=== PATIENT | male | born 1995 | race Caucasian/White ===

== ENCOUNTER 2021-05-14 17:49 | Emergency (ER) | payer OTHER, SELFPAY ==
[2021-05-14 18:42] VITALS: BP 123/55; PULSE 69; RESP 18; O2SAT 98; BMI 20.5
--- NOTE | 2021-05-14 18:47 | ED.URI ---
HPI - URI/Sore Throat General Chief Complaint: Upper Respiratory Symptoms Stated Complaint: fatigue,vomiting,sore throat Time Seen by Provider: 05/14/21 18:39 History of Present Illness HPI Narrative: Patient 26-year-old male presents today with having some coughing generalized malaise achiness. Patient had nausea vomiting on Tuesday. That has improved over time. Have some sore throat associated with the symptoms. Patient did not receive his coronavirus vaccine. Works in a warehouse. Denies any recent travel. Patient from home. Now tolerating fluids. Related Data Allergies Allergy/AdvReac Type Severity Reaction Status Date / Time No Known Allergies Allergy Verified 05/14/21 18:39 Review of Systems Review of Systems: Positive coughing positive generalized malaise weakness Positive nausea vomiting on Tuesday. Symptom has since improved. All systems reviewed otherwise negative Yes all other systems are reviewed and are negative [facility] Past Medical History Attestation statement: The following information was validated with the patient. Social History Social History Advance Directives: No Advance Directives Information Provided: No Physical Exam Vital Signs: Vital Signs: Last Vital Signs Pulse 69 05/14/21 18:42 Resp 18 05/14/21 18:42 BP 123/55 L 05/14/21 18:42 Pulse Ox 98 05/14/21 18:42 Body Mass Index 20.5 Appearance: Alert. Oriented X3. No acute distress. Eyes: Pupils equal, round and reactive to light. ENT: Pharynx normal. Neck: Normal inspection. Neck supple. No lymph nodes noted. No crepitus CVS: Normal heart rate and rhythm. Pulses normal. Normal S1 and S2 Respiratory: No respiratory distress. Breath sounds normal. No Wheezing. No rales Abdomen: Soft and nontender. No rigidity. No distention. good BS x4 Skin: Skin warm and dry. Normal skin color. Normal skin turgor. Extremities: No lower extremity edema. Neurovascular intact to all extremities. No Lacerations. No Rash Neuro: Oriented X 3. No motor deficit. No sensory deficit. Moving all extermities. No slurred speech MDM - URI/Sore Throat MDM Narrative Medical decision making narrative: Will test for COVID and rapid strep. Both of which were negative. Patient well-appearing O2 sat is normal. Will discharge patient home. In stable condition Lab Data Attestation: I reviewed the patient's lab results. Labs: Lab Results 05/14/21 05/14/21 Range/Units 18:47 18:47 COVID-19 (JANETT) Negative (Negative) COVID-19 Clin Com See Note S. pyogenes GrpA STEFANO Negative (Negative) Discharge Plan Discharge Clinical Impression: Upper respiratory infection Patient Disposition: Home, Self-Care Instructions: Upper Respiratory Infection (ED) Referrals: Physician,None [Physician] - 2 days Stand Alone Forms: Work/School Release
[2021-05-14 19:04] LABS: IDNOW Serial# 08D9AD1C; Strep A Nucleic Acid Negative (Negative)
[2021-05-14 19:08] LABS: COVID-19 Test Negative (Negative)
== END 2021-05-14 19:27 | disposition home or self-care (01) ==
LOC: HO.ED 19:01
PROVIDERS: Emergency Provider Emergency Medicine Emergency Medical Services; PCP Internal Medicine
DX: J06.9 Acute upper respiratory infection, unspecified (principal); Z20.822 Contact with and (suspected) exposure to COVID-19
CPT/HCPCS: 36415; 87635; 87651; 99282; 99283

== ENCOUNTER 2021-05-25 15:55 | Emergency (ER) | payer OTHER, SELFPAY ==
[2021-05-25 16:38] VITALS: BP 122/74; PULSE 95; RESP 18; TEMP 38.7; O2SAT 98; BMI 28.3
[2021-05-25] MEDS: Acetaminophen 325 MG TABLET 650 MG PO (16:47)
[2021-05-25 17:02] LABS: Strep A Nucleic Acid Negative (Negative)
[2021-05-25 17:32] LABS: Influenza A PCR NEGATIVE (Negative); Influenza B PCR NEGATIVE (Negative); Resp Syncy Virus RNA Qual PCR NEGATIVE (Negative); SARS COV2 PCR INHOUSE POSITIVE (Negative)
--- NOTE | 2021-05-25 18:35 | ED.URI ---
HPI - URI/Sore Throat General Chief Complaint: Upper Respiratory Symptoms Stated Complaint: sore throat headache Time Seen by Provider: 05/25/21 18:35 Source: patient Mode of arrival: ambulatory Limitations: no limitations History of Present Illness MD elicited complaint: fever, sore throat and other (body aches) Onset (ago): day(s) (1) Consistency: constant Severity: moderate Able to tolerate fluids by mouth: Yes Exacerbating factors: swallowing Relieving factors: nothing Context: other (patient is not vaccinated) Associated symptoms: fever, chills, myalgias, sore throat and cough Treatments prior to arrival: none Related Data Allergies Allergy/AdvReac Type Severity Reaction Status Date / Time No Known Allergies Allergy Verified 05/14/21 18:39 Review of Systems Review of Systems: Constitutional : positive Fever, positive Chills, positive fatigue, positive Malaise ENT/Mouth : positive sore throat, positive runny nose Eyes: No Discharge Cardiovascular : No Chest Pain, No SOB Respiratory : No Cough, No Sputum Gastrointestinal : No Nausea, No Vomiting, No Diarrhea Genitourinary : No Dysuria, No Urinary Frequency Musculoskeletal : positive Myalgia Skin : No rash Neuro : No Headache PMFSH Past Medical History Attestation statement: The following information was validated with the patient. Medical History (Updated 05/25/21 @ 18:46 by Marilee Rodriguez DO) No known health problems Social History Social History (Updated 05/25/21 @ 18:46 by Marilee Rodriguez DO) Patient Tobacco Use Status: Never used Tobacco Substance Use Type: Marijuana Advance Directives: No Advance Directives Information Provided: No Physical Exam Vital Signs: Vital Signs: Last Vital Signs Temp 101.6 F H 05/25/21 16:38 Pulse 95 05/25/21 16:38 Resp 18 05/25/21 16:38 BP 122/74 05/25/21 16:38 Pulse Ox 98 05/25/21 16:38 Body Mass Index 28.3 Appearance: Alert. Oriented X3. No acute distress. Eyes: Pupils equal, round and reactive to light. ENT: Pharynx mild erythema no exudates or swelling Neck: Normal inspection. Neck supple. CVS: Normal heart rate and rhythm. Pulses normal. Respiratory: No respiratory distress. Breath sounds normal. Abdomen: Soft and nontender. Skin: Skin warm and dry. Normal skin color. . Extremities: No lower extremity edema. Neuro: Oriented X 3. No motor deficit. No sensory deficit. MDM - URI/Sore Throat MDM Narrative Medical decision making narrative: 26 yo male no PMH here with URI symptoms, no hypoxia clear lungs he is not vaccinated - tested positive for COVID given precautions to return Lab Data Labs: Lab Results 05/25/21 05/25/21 Range/Units 16:46 16:46 Coronavirus (PCR) POSITIVE A (Negative) Influenza Type A (PCR) NEGATIVE (Negative) Influenza Type B (PCR) NEGATIVE (Negative) RSV RNA Qual (PCR) NEGATIVE (Negative) S. pyogenes GrpA STEFANO Negative (Negative) Discharge Plan Discharge Clinical Impression: COVID-19 Patient Disposition: Home, Self-Care Instructions: COVID-19 (Coronavirus Disease 2019) (ED) Additional Instructions: return to ED for any worsening symptoms or concerns if you are so short of breath you cannot walk to your bathroom please return Stand Alone Forms: Work/School Release
== END 2021-05-25 19:39 | disposition home or self-care (01) ==
PROVIDERS: Emergency Provider Emergency Medicine
DX: U07.1 COVID-19 (principal)
CPT/HCPCS: 0241U; 36415; 87651; 99283